=== PATIENT | female | born 1975 | race Caucasian/White ===

== ENCOUNTER → 2021-05-16 11:32 | Outpatient (CLI) | payer OTHER, MEDICAID, SELFPAY ==
--- NOTE | 2021-05-16 11:33 | DI.RAD.S_ITS ---
PROCEDURE: XR ANKLE LT MIN 3V INDICATIONS: Lt lateral malleolus pain, +injury, lateral LE pain TECHNIQUE: 3 views of the ankle were acquired. COMPARISON: None. FINDINGS: Bones: On the lateral view, there is a small possible avulsion fracture from the inferior cortex of the cuboid. Lateral malleolus is intact. Normal bone mineralization. Soft tissues: No tibiotalar joint effusion. Achilles tendon appears normal. IMPRESSION: Probable small avulsion fracture arising from the lateral inferior aspect of the cuboid tarsal bone. Differential would be small accessory ossicle. Approved by: Clement Aggarwal M.D. on 05/16/2021 at 11:36
== END ==
PROVIDERS: Family Provider Family Medicine; PCP Family Medicine; Referring Provider Nurse Practitioner Critical Care Medicine; Visit Provider Nurse Practitioner Critical Care Medicine
DX: S99.912A Unspecified injury of left ankle, initial encounter (principal); M25.572 Pain in left ankle and joints of left foot; X58.XXXA Exposure to other specified factors, initial encounter
CPT/HCPCS: 73610

== ENCOUNTER → 2021-06-18 16:04 | Outpatient (CLI) | payer OTHER, MEDICAID, SELFPAY | PROVIDERS: Family Provider Family Medicine; Referring Provider Physician Assistant; Visit Provider Physician Assistant | DX: S92.215A Nondisplaced fracture of cuboid bone of left foot, initial encounter for closed fracture (principal) ==

== ENCOUNTER → 2021-06-30 10:49 | Outpatient (CLI) | payer OTHER, MEDICAID, SELFPAY ==
--- NOTE | 2021-06-30 | DI.US.S_ITS ---
PROCEDURE: US PERIPH VENOUS LOW EXTREM LT INDICATIONS: Ankle fracture, left calf pain, clinical concern for DVT LEFT CALF TECHNIQUE: Real-time imaging, as well as color and pulse Doppler interrogation, were performed of the lower extremity deep veins from the inguinal ligament to the popliteal fossa. COMPARISON: None. FINDINGS: The common femoral, femoral and popliteal veins are normally compressible, and free of intraluminal thrombus. Color and pulse Doppler demonstrate normal phasic intraluminal flow. There is normal augmentation response to distal compression maneuver. IMPRESSION: Negative for deep venous thrombosis. Dictated by: Earle Camacho M.D. on 06/30/2021 at 10:55 Approved by: Earle Camacho M.D. on 06/30/2021 at 10:56
== END ==
PROVIDERS: Family Provider Family Medicine; Referring Provider Physician Assistant; Visit Provider Physician Assistant
DX: S92.215A Nondisplaced fracture of cuboid bone of left foot, initial encounter for closed fracture (principal); M79.662 Pain in left lower leg
CPT/HCPCS: 93971

== ENCOUNTER → 2021-07-14 17:31 | Outpatient (CLI) | payer OTHER, MEDICAID, SELFPAY ==
--- NOTE | 2021-07-14 | DI.MRI.S_ITS ---
PROCEDURE: MR ANKLE LT WO CON INDICATIONS: Nondisplaced fracture of the cuboid bone of left foot TECHNIQUE: Noncontrast sagittal T1 spin echo and T2 fast spin echo with fat saturation, axial proton density fast spin echo and T2 fast spin echo with fat saturation, coronal T1 spin echo and T2 fast spin echo with fat saturation through the ankle/hindfoot. COMPARISON: [facility], CR, XR ANKLE LT MIN 3V, 05/16/2021, 12:44. [facility], CR, XR ANKLE 3+ VIEWS LEFT, 05/24/2021, 15:48. [facility], CR, XR ANKLE 3+ VIEWS LEFT, 06/18/2021, 11:20. FINDINGS: Image quality: Excellent. Bones and joints: There is no marrow edema. No acute fracture or dislocation. Small calcifications adjacent to plantar and lateral aspect of proximal cuboid is seen and is within the distal peroneus longus tendon suggestive of calcific tendinitis. No hindfoot coalitions. No osteochondral injuries of the talar dome. No pathologic joint effusions. Medial structures: The posterior tibialis, flexor digitorum longus, and flexor hallucis longus tendons are intact. The posterior tibial neurovascular bundle appears normal within the tarsal tunnel, without extrinsic mass effect. The deep layer (anterior and posterior tibiotalar ligaments) and superficial layer (tibionavicular, tibiospring, and tibiocalcaneal ligaments) of the deltoid ligament appear normal. The spring ligament components (superomedial calcaneonavicular, medioplantar oblique calcaneonavicular, and inferoplantar longitudinal ligaments) are intact. Lateral structures: The anterior talofibular, calcaneofibular, and posterior talofibular ligaments appear thickened suggestive of low-grade ligament sprain. No full-thickness ligament rupture.. More superiorly, the anterior and posterior tibiofibular ligaments appear intact, as is the intermalleolar ligament. The tibiofibular syndesmosis is normal in width at 2 mm or less. The peroneus brevis tendon is normal in size and morphology. Mildly thickened peroneus longus tendon at the level of calcaneocuboid joint/proximal cuboid is seen. Adjacent bony peroneal tubercle and retrotrochlear prominence are normal in size. The sinus tarsi demonstrates normal fatty signal, without edema, fibrosis, or cyst formation. Visualized sinus tarsi components (cervical ligament, interosseous talocalcaneal ligament, roots of the inferior extensor retinaculum) appear normal. The calcaneonavicular and calcaneocuboid components of the bifurcate ligament appear intact. The dorsal calcaneocuboid ligament appears intact. Anterior structures: The tibialis anterior, extensor hallucis longus, and extensor digitorum longus tendons appear intact. The dorsal talonavicular ligament appears intact. Posterior and plantar structures: Achilles tendon is intact. Medial and lateral bands of the plantar fascia are of normal thickness. No abductor digiti quinti muscle atrophy to suggest Duran neuropathy. IMPRESSION: 1. No acute fracture or dislocation is seen. No marrow edema. 2. Previously radiograph findings of small calcifications adjacent to plantar and lateral aspect of proximal cuboid are again seen and appears to be within thickened peroneus longus tendon at this level suggestive of calcific tendinitis. 3. Low-grade sprain involving anterior and posterior talofibular ligaments and calcaneofibular ligament. Medial ankle ligaments are intact. 4. Rest of the ankle tendons are intact. Plantar fascia is intact. Dictated by: Yoel Marsh M.D. on 07/15/2021 at 10:18 Approved by: Yoel Marsh M.D. on 07/15/2021 at 10:44
== END ==
PROVIDERS: Family Provider Family Medicine; Referring Provider Physician Assistant; Visit Provider Physician Assistant
DX: S92.215A Nondisplaced fracture of cuboid bone of left foot, initial encounter for closed fracture (principal); S93.412A Sprain of calcaneofibular ligament of left ankle, initial encounter; S93.492A Sprain of other ligament of left ankle, initial encounter
CPT/HCPCS: 73721

== ENCOUNTER → 2022-01-07 16:03 | Outpatient (CLI) | payer OTHER, MEDICAID, SELFPAY | PROVIDERS: Family Provider Family Medicine; Visit Provider Nurse Practitioner Family | DX: R39.89 Other symptoms and signs involving the genitourinary system (principal); R10.2 Pelvic and perineal pain | CPT/HCPCS: 87086; 87210 ==

== ENCOUNTER → 2022-01-07 17:06 | Outpatient (CLI) | payer OTHER, MEDICAID, SELFPAY ==
[2022-01-08 00:33] LABS: Hepatitis B Surface Antigen NEGATIVE s/c (NEGATIVE)
[2022-01-08 00:50] LABS: HIV 1 & 2 Ab/Ag 4th Gen Combo NEGATIVE (NEGATIVE); Hep C Virus Ab w/Reflex Quant NEGATIVE s/c (NEGATIVE)
[2022-01-08 07:26] LABS: RPR Screen Non Reactive (Non Reactive)
[2022-01-10 11:36] LABS: HSV 2 IGG AB 1.13 index (0.00-0.90)
[2022-01-11 17:45] LABS: HSV I/II IgM <0.91 Ratio (0.00-0.90)
== END ==
PROVIDERS: Family Provider Family Medicine; Referring Provider Nurse Practitioner Family; Visit Provider Nurse Practitioner Family
DX: N89.8 Other specified noninflammatory disorders of vagina (principal); R39.89 Other symptoms and signs involving the genitourinary system; R10.2 Pelvic and perineal pain
CPT/HCPCS: 36415; 81002; 86592; 86694; 86695; 86696; 86803; 87086; 87210; 87340; 87389

== ENCOUNTER → 2022-05-13 17:03 | Outpatient (CLI) | payer OTHER, MEDICAID, SELFPAY ==
--- NOTE | 2022-05-13 17:04 | DI.RAD.S_ITS ---
PROCEDURE: XR CERVICAL SPINE 2V OR 3V INDICATIONS: radiculopathy, previous injury TECHNIQUE: 3 view(s) of the cervical spine were acquired. COMPARISON: [facility], MR, C-SPINE WITHOUT CONTRAST, 08/01/2008, 11:00. [facility], CR, XR SHOULDER LT MIN 2V, 05/13/2022, 17:10. FINDINGS: Bones: No fractures or dislocations to the T1 level. The lateral masses of C1 appear intact on the odontoid view. No suspicious bony lesions. There is moderate disc space narrowing seen at C4-C5, with moderate to severe disc space narrowing at C5-C6. Moderate disc space narrowing is seen at C6-C7. Endplate irregularity and sclerosis are seen, which are worst at C5-C6. There is overall straightening of the normal cervical lordosis, which is commonly observed in patients with muscular spasm. Soft tissues: No prevertebral soft tissue swelling. The visualized lung apices are unremarkable. IMPRESSION: Cervical spine degenerative changes are seen, which are worst at the C5-C6 level. If it would be helpful for clinical management decision making, please consider a dedicated cervical spine MRI for further evaluation (assuming that there is no contraindication). Dictated by: Earle Camacho M.D. on 05/13/2022 at 16:56 Approved by: Earle Camacho M.D. on 05/13/2022 at 16:57
--- NOTE | 2022-05-13 17:04 | DI.RAD.S_ITS ---
PROCEDURE: XR SHOULDER LT MIN 2V INDICATIONS: radiculopathy, previous injury TECHNIQUE: 3 views of the shoulder were acquired. COMPARISON: None. FINDINGS: Bones: No fractures or dislocations. No suspicious bony lesions. Visualized ribs appear intact. Mild degenerative changes are seen, with mild subacromial spurring. Soft tissues: No suspicious soft tissue calcifications. The visualized lung demonstrates an unremarkable appearance. IMPRESSION: Mild degenerative changes are seen by plain film. If it would be helpful for clinical management decision making, please consider a dedicated, scheduled shoulder MRI for further evaluation (assuming that there is no contraindication). Dictated by: Earle Camacho M.D. on 05/13/2022 at 16:55 Approved by: Earle Camacho M.D. on 05/13/2022 at 16:55
== END ==
PROVIDERS: Family Provider Family Medicine; Referring Provider Student in an Organized Health Care Education/Training Program; Visit Provider Student in an Organized Health Care Education/Training Program
DX: M47.22 Other spondylosis with radiculopathy, cervical region (principal); M25.512 Pain in left shoulder
CPT/HCPCS: 72040; 73030

== ENCOUNTER → 2022-05-21 18:03 | Outpatient (CLI) | payer OTHER, MEDICAID, SELFPAY | PROVIDERS: Family Provider Family Medicine; Visit Provider Nurse Practitioner Family | DX: N89.8 Other specified noninflammatory disorders of vagina (principal) | CPT/HCPCS: 87070; 87075; 87077; 87147; 87205; 87210; 87252 ==

== ENCOUNTER → 2022-05-31 09:43 | Outpatient (CLI) | payer OTHER, MEDICAID, SELFPAY ==
--- NOTE | 2022-05-31 09:45 | DI.RAD.S_ITS ---
PROCEDURE: XR LUMBAR SPINE 2-3V INDICATIONS: pain TECHNIQUE: 3 views of the lumbar spine were acquired. COMPARISON: None. FINDINGS: Bones: 5 [id number]-hys-ntuddml vertebrae are present. Qcfo-ln-jbrrvgmo scoliosis. Small vertebral body osteophytes. No vertebral body compression fractures. No suspicious bony lesions. Soft tissues: Prominent stool in the colon. No suspicious soft tissue calcifications. IMPRESSION: Cwxt-ob-sxcwmlmk scoliosis. Dictated by: Sancho Hancock M.D. on 05/31/2022 at 15:50 Approved by: Sancho Hancock M.D. on 05/31/2022 at 15:51
--- NOTE | 2022-05-31 09:45 | DI.RAD.S_ITS ---
PROCEDURE: XR KNEE RT 3V INDICATIONS: pain, effusion TECHNIQUE: 3 views of the knee were acquired. COMPARISON: None. FINDINGS: Bones: No fractures or dislocations. Joint space narrowing at the medial compartment. Small osteophytes. No suspicious bony lesions. Soft tissues: Small joint effusion. No suspicious soft tissue calcifications. IMPRESSION: Small joint effusion. Mild DJD at the medial compartment. Dictated by: Sancho Hancock M.D. on 05/31/2022 at 15:53 Approved by: Sancho Hancock M.D. on 05/31/2022 at 15:54
--- NOTE | 2022-05-31 09:45 | DI.RAD.S_ITS ---
PROCEDURE: XR HIP W PEL IF DONE LT 2V INDICATIONS: pain, n/t in leg, foot TECHNIQUE: AP pelvis with lateral view(s) of the left hip(s). COMPARISON: [facility], , XR LUMBAR SPINE 2-3V, 05/31/2022, 9:42. FINDINGS: Bones: No fractures or dislocations. Pelvic ring appears intact. Minimal hip DJD bilaterally. No suspicious bony lesions. Soft tissues: Prominent stool in the colon. No suspicious soft tissue calcifications. IMPRESSION: Minimal hip DJD. Prominent stool in the colon. Dictated by: Sancho Hancock M.D. on 05/31/2022 at 15:52 Approved by: Sancho Hancock M.D. on 05/31/2022 at 15:53
== END ==
PROVIDERS: Family Provider Family Medicine; PCP Family Medicine; Referring Provider Family Medicine; Visit Provider Family Medicine
DX: M25.552 Pain in left hip (principal); M25.561 Pain in right knee; G89.29 Other chronic pain; M54.50 Low back pain, unspecified; M41.9 Scoliosis, unspecified
CPT/HCPCS: 72100; 73502; 73562

== ENCOUNTER → 2022-06-08 17:16 | Outpatient (CLI) | payer OTHER, MEDICAID, SELFPAY ==
[2022-06-08 18:23] LABS: Alanine Aminotransferase 38 IU/L (<35); Albumin 4.1 g/dL (3.5-5.0); Albumin Globulin Ratio 1.3 (1.0-2.8); Alkaline Phosphatase 131 U/L (38-126); Aspartate Aminotransferase 34 IU/L (14-36); BUN Creatinine Ratio 23.1 (6-22); Bilirubin Total 0.3 mg/dL (0.2-1.3); Blood Urea Nitrogen 12 mg/dL (7-17); Calcium 8.8 mg/dL (8.4-10.2); Carbon Dioxide 31 mmol/L (22-32); Chloride 92 mmol/L (98-107); Cholesterol 157 mg/dL (140-199); Estimated Glomerular Filt Rate > 60 mL/min (>60); Globulin 3.2 g/dL (1.7-4.1); HDL Cholesterol 95 mg/dL (40-60); HEMOLYSIS < 15 (0-50); LDL Cholesterol Calculated 55 mg/dL (<100); Potassium 4.1 mmol/L (3.4-5.1); Sodium 132 mmol/L (137-145); Total Protein 7.3 g/dL (6.3-8.2); Triglycerides 37 mg/dL (35-150)
[2022-06-08 18:24] LABS: Hemoglobin A1C% w Est Avg Glu > 14.0 % (4.0-6.0)
[2022-06-08 18:37] LABS: Glucose 505 mg/dL (70-100)
== END ==
PROVIDERS: Family Provider Family Medicine; PCP Family Medicine; Referring Provider Family Medicine; Visit Provider Family Medicine
DX: I10 Essential (primary) hypertension (principal); Z13.1 Encounter for screening for diabetes mellitus; Z86.32 Personal history of gestational diabetes; F17.200 Nicotine dependence, unspecified, uncomplicated
CPT/HCPCS: 36415; 80053; 80061; 83036

== ENCOUNTER 2022-06-09 18:30 | Emergency (ER) | payer OTHER, MEDICAID, SELFPAY ==
[2022-06-09 18:48] VITALS: PULSE 107; RESP 20; TEMP 36.2; O2SAT 96; BMI 22.6
[2022-06-09] MEDS: SODIUM CHLORIDE 0.9% 1,000 ML 1000 ML IV (19:22)
[2022-06-09 19:26] LABS: Add Manual Diff / Slide Review NO; Basophils Absolute Auto 0 /uL (0-100); Basophils Percent Auto 0.8 % (0-2); Eosinophils Absolute Auto 300 /uL (0-450); Eosinophils Percent Auto 6.8 % (2-4); Hematocrit 41.4 % (36-46); Lymphocytes Absolute Auto 2300 /uL (1100-4500); Lymphocytes Percent Auto 45.5 % (25-40); Mean Corpuscular HGB Conc 33.9 % (30-36); Mean Corpuscular Hemoglobin 27.5 PG (26-34); Mean Corpuscular Volume 81.2 fL (80-100); Monocytes Absolute Auto 400 /uL (0-900); Monocytes Percent Auto 7.7 % (3-14); Neutrophils Absolute Auto 2000 /uL (1500-7000); Neutrophils Percent Auto 39.2 % (50-75); Platelet Count 367 X10^3/uL (150-400)
--- NOTE | 2022-06-09 19:41 | ED_ITS ---
HPI - General Adult General Chief complaint: Diabetic Problem Stated complaint: Blood sugar over 500 Time Seen by Provider: 06/09/22 19:11 Source: patient Mode of arrival: Ambulatory Limitations: no limitations History of Present Illness HPI narrative: Patient is a 47-year-old female who had a recent visit with a new primary doctor. She stated that during that visit she told her primary doctor that she was having similar symptoms to when she was diagnosed with gestational diabetes many years ago. She currently does not carry the diagnosis of diabetes. States she had blood drawn yesterday. She was contacted by the providers office to come to the emergency department because her blood sugar was elevated and there was concern for DKA. Her symptoms are muscle aches and increase in thirst. Related Data Previous Rx's Medication Instructions Recorded lidocaine 5 % topical ointment 1 applic topical DAILY PRN pain 05/13/22 #30 grams naproxen 500 mg tablet 500 mg PO BID PRN pain #60 tabs 05/31/22 metformin 500 mg tablet 500 mg PO DAILY #30 tabs 06/09/22 Allergies Allergy/AdvReac Type Severity Reaction Status Date / Time No Known Drug Allergies Allergy Verified 06/09/22 18:35 Review of Systems Review of Systems ROS Unobtainable: All systems reviewed & are unremarkable except as noted in HPI and below Patient History Medical History Benign essential HTN History of gestational diabetes Tobacco dependence Social History Smoking Status: Never smoker Smoking Status: Never smoker tobacco type: cigarettes Substance Use Type: heroin and methamphetamine Exam Initial Vital Signs Initial Vital Signs: Vital Signs Temperature 97.2 F L 06/09/22 18:48 Pulse Rate 107 H 06/09/22 18:48 Respiratory Rate 20 06/09/22 18:48 Pulse Oximetry 96 06/09/22 18:48 Oxygen Delivery Method 06/09/22 18:48 Const General: cooperative and comfortable HENMT Head: normal to inspection Resp Effort & Inspection: normal respiratory effort Cardio Rate: regular rate GI Inspection: normal to inspection Neuro General: patient alert, patient awake and moves all extremities Extrem General: normal to inspection Course Orders Ordered: ED Orders 06/09/22 19:15 Complete Blood Count AUTO DIFF Stat Comprehensive Metabolic Panel Stat Ketones (Beta-Hydroxybutyrate) Stat Lipase Stat Magnesium Stat Phosphorous Stat Discontinued Medications Sodium Chloride (Normal Saline 0.9%) 1,000 mls @ 1,000 mls/hr IV BOLUS ONE Stop: 06/09/22 20:11 Last Infusion: 06/09/22 20:34 Dose: 0 mls/hr Documented By: Admin: 06/09/22 19:22 Dose: 1,000 mls/hr Documented By: JON Metformin HCl (Metformin Hcl 500 Mg Tablet) 500 mg PO NOW ONE Stop: 06/09/22 21:06 Last Admin: 06/09/22 21:24 Dose: 500 mg Documented By: ALANIS Vital Signs Vital signs: Vital Signs - 8 hr 06/09/22 18:48 06/09/22 20:09 06/09/22 20:09 Temperature 97.2 F L Pulse Rate 107 H 89 Respiratory Rate 20 Blood Pressure 149/89 H Pulse Oximetry 96 95 Oxygen Delivery Method Room Air 06/09/22 20:30 06/09/22 20:30 06/09/22 21:00 Temperature Pulse Rate 82 96 H Respiratory Rate Blood Pressure 144/85 H Pulse Oximetry 99 100 Oxygen Delivery Method 06/09/22 21:00 Temperature Pulse Rate Respiratory Rate Blood Pressure 131/89 Pulse Oximetry Oxygen Delivery Method Medical Decision Making Medical Records Medical records reviewed: Yes I reviewed the patient's medical records. Lab Data Lab results reviewed: Yes I reviewed the patient's lab results. 06/09/22 19:15 06/09/22 19:15 Labs: Lab Results 06/09/22 06/09/22 Range/Units 19:15 19:15 WBC 5.0 (4.5-11.0) X10^3/uL RBC 5.10 (4.0-5.2) X10^6/uL Hgb 14.0 (12.0-16.0) g/dL Hct 41.4 (36-46) % MCV 81.2 (80-100) fL MCH 27.5 (26-34) PG MCHC 33.9 (30-36) % RDW 13.0 (11.6-14.8) % Plt Count 367 (150-400) X10^3/uL Neut % (Auto) 39.2 L (50-75) % Lymph % (Auto) 45.5 H (25-40) % [place] % (Auto) 7.7 (3-14) % Eos % (Auto) 6.8 H (2-4) % Baso % (Auto) 0.8 (0-2) % Neut # (Auto) 2000 (1610-0734) /uL Lymph # (Auto) 2300 (9722-2881) /uL [place] # (Auto) 400 (0-900) /uL Eos # (Auto) 300 (0-450) /uL Baso # (Auto) 0 (0-100) /uL Sodium 134 L (137-145) mmol/L Potassium 4.0 (3.4-5.1) mmol/L Chloride 94 L (98-107) mmol/L Carbon Dioxide 32 (22-32) mmol/L BUN 15 (7-17) mg/dL Creatinine 0.57 (0.52-1.04) mg/dL Estimated GFR > 60 (>60) mL/min BUN/Creatinine Ratio 26.3 H (6-22) Glucose 498 H* (70-100) mg/dL Calcium 9.2 (8.4-10.2) mg/dL Phosphorus 4.2 (2.5-4.5) mg/dL Magnesium 2.0 (1.6-2.3) mg/dL Total Bilirubin 0.6 (0.2-1.3) mg/dL AST 32 (14-36) IU/L ALT 38 H (<35) IU/L Alkaline Phosphatase 147 H (38-126) U/L Total Protein 7.9 (6.3-8.2) g/dL Albumin 4.4 (3.5-5.0) g/dL Globulin 3.5 (1.7-4.1) g/dL Albumin/Globulin Ratio 1.3 (1.0-2.8) Lipase 82 (23-300) U/L Ketones 0.06 (<0.27) mmol/L Point of Care Testing Glucose POC 365 Point of care testing: Point of Care Testing Glucose POC 365 [facility] Narrative Medical decision making narrative: Patient is hyperglycemic but not in DKA. Her blood sugar did improve with fluids. Patient is not currently on any diabetes medications. She stated that her primary doctor wanted to see her back in 1 month. Advised then given the findings of her blood sugar over the past couple days that she should probably be seen sooner than that and she needed to contact her primary doctor for this. Will start the patient on low-dose metformin. She will most likely need more metformin or even insulin however given this is such a new diagnosis and she will not have established follow-up with myself we will hold on starting her on any insulin. Will discharge patient home with instructions to follow with the primary doctor. She was given return precautions. She expressed understanding and agreement. Discharge Plan Departure Patient Disposition: Home Clinical Impression: Diabetes mellitus Instructions: DI for Diabetes Type 2 Activity Restrictions/Additional Instructions: I do recommend that you start taking the metformin as directed. Tomorrow contact your primary doctor for a follow-up. Return to the emergency department for any new or worsening symptoms. Prescriptions: New metformin 500 mg tablet 500 mg PO DAILY Qty: 30 0RF No Action lidocaine 5 % ointment 1 applic topical DAILY PRN (Reason: pain) Qty: 30 1RF naproxen 500 mg tablet 500 mg PO BID PRN (Reason: pain) Qty: 60 11RF Rx Instructions: with food Referrals: Abigail Lin DO [Primary Care Provider] - Stand Alone Forms: Patient Portal/API
[2022-06-09 20:09] VITALS: BP 149/89; PULSE 89; O2SAT 95
[2022-06-09 20:24] LABS: Alanine Aminotransferase 38 IU/L (<35); Albumin 4.4 g/dL (3.5-5.0); Albumin Globulin Ratio 1.3 (1.0-2.8); Alkaline Phosphatase 147 U/L (38-126); Aspartate Aminotransferase 32 IU/L (14-36); BUN Creatinine Ratio 26.3 (6-22); Bilirubin Total 0.6 mg/dL (0.2-1.3); Blood Urea Nitrogen 15 mg/dL (7-17); Calcium 9.2 mg/dL (8.4-10.2); Carbon Dioxide 32 mmol/L (22-32); Chloride 94 mmol/L (98-107); Estimated Glomerular Filt Rate > 60 mL/min (>60); Globulin 3.5 g/dL (1.7-4.1); HEMOLYSIS 24 (0-50); Lipase 82 U/L (23-300); Phosphorous 4.2 mg/dL (2.5-4.5); Sodium 134 mmol/L (137-145); Total Protein 7.9 g/dL (6.3-8.2)
[2022-06-09 20:27] LABS: Ketones (Beta-Hydroxybutyrate) 0.06 mmol/L (<0.27)
[2022-06-09 20:30] VITALS: BP 144/85; PULSE 82; O2SAT 99
[2022-06-09 20:31] LABS: Glucose 498 mg/dL (70-100)
[2022-06-09 21:00] VITALS: BP 131/89; PULSE 96; O2SAT 100
[2022-06-09] MEDS: METFORMIN HCL 500 MG TABLET PO (21:24)
== END 2022-06-09 21:05 | disposition home or self-care (01) ==
PROVIDERS: Emergency Provider Emergency Medicine; Family Provider Family Medicine; PCP Family Medicine
DX: E11.65 Type 2 diabetes mellitus with hyperglycemia (principal)
CPT/HCPCS: 36415; 80053; 82009; 82962; 83690; 83735; 84100; 85025; 96360; 99284

== ENCOUNTER → 2022-09-02 12:00 | Outpatient (CLI) | payer OTHER, MEDICAID, SELFPAY ==
[2022-09-02 14:04] LABS: Creatinine Urine Random 108.4 mg/dL
[2022-09-02 14:08] LABS: Microalbumi Creatinin Ratio Ur 7.3 ug/mg CR (<30); Microalbumin Urine Random 0.8 mg/dL (0-1.6)
[2022-09-03 02:32] LABS: Labcorp Hemoglobin (Hb) A1c 7.1 % (4.8-5.6)
== END ==
PROVIDERS: Family Provider Family Medicine; PCP Family Medicine; Referring Provider Family Medicine; Visit Provider Family Medicine
DX: E11.65 Type 2 diabetes mellitus with hyperglycemia (principal); Z79.4 Long term (current) use of insulin
CPT/HCPCS: 36415; 82043; 82570; 83036

== ENCOUNTER → 2023-02-03 11:34 | Outpatient (CLI) | payer OTHER, MEDICAID, SELFPAY | PROVIDERS: Family Provider Family Medicine; PCP Family Medicine; Referring Provider Family Medicine; Visit Provider Family Medicine | DX: R07.89 Other chest pain (principal) | CPT/HCPCS: 93005; 93010 ==

== ENCOUNTER → 2023-02-07 16:20 | Outpatient (CLI) | payer OTHER, MEDICAID, SELFPAY ==
[2023-02-08 17:28] LABS: Fecal Immunochemical Test Positive (Negative)
== END ==
PROVIDERS: Family Provider Family Medicine; PCP Family Medicine; Referring Provider Family Medicine; Visit Provider Family Medicine
DX: Z12.11 Encounter for screening for malignant neoplasm of colon (principal)
CPT/HCPCS: 82274

== ENCOUNTER → 2023-02-19 16:39 | Outpatient (CLI) | payer OTHER, MEDICAID, SELFPAY | PROVIDERS: Family Provider Family Medicine; PCP Family Medicine; Visit Provider Physician Assistant | DX: R30.0 Dysuria (principal) | CPT/HCPCS: 81002; 87077; 87086 ==

== ENCOUNTER 2023-04-20 07:18 | Day surgery (SDC) | payer OTHER, MEDICAID, SELFPAY ==
[2023-04-20 07:26] VITALS: BP 110/70; PULSE 117; RESP 16; TEMP 36.1; O2SAT 98; BMI 23.1
--- NOTE | 2023-04-20 07:48 | PM.HP.1 ---
History of Present Illness History of Present Illness Date Patient Seen: 04/20/23 Time Patient Seen: 07:48 Chief complaint: Screening Colonsocopy Narrative: Renetta a 48-year-old woman who is here for her first screening colonoscopy. No known family history of colon cancer. She tends to be constipated and sometimes sees some blood after a hard stool. FORMERLY [facility], 1928–1983 Medical History Insomnia PTSD (post-traumatic stress disorder) Major depression, single episode 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, with long-term current use of insulin Migraine headache Benign essential HTN Tobacco dependence Social History Smoking Status: Never smoker Meds Home Medications and Allergies Home Medications Medication Instructions Recorded Confirmed Type lidocaine 5 % topical ointment 1 applic topical DAILY PRN pain 05/13/22 02/19/23 Rx #30 grams naproxen 500 mg tablet 500 mg PO BID PRN pain #60 tabs 05/31/22 02/19/23 Rx blood sugar diagnostic (Advocate #100 ea 06/13/22 02/19/23 Rx Test Strips) blood-glucose meter (Advocate #1 ea 06/13/22 02/19/23 Rx Blood Glucose Monitor) metformin 500 mg tablet,extended 1,000 mg (2 x 500 mg) PO BID blood 06/13/22 02/19/23 Rx release 24hr sugars #360 tabs cyclobenzaprine 5 mg tablet 5 mg PO BEDTIME PRN muscle spasm 07/08/22 02/19/23 Rx #30 tabs insulin syr/ndl U100 half kirsten 0.3 #100 ea 12/01/22 02/19/23 Rx mL 29 gauge x 1/2 lidocaine HCl 4 % (40 mg/mL) 1 applic mucous membrane BID PRN 12/14/22 02/19/23 Rx mucosal solution pain #50 mL insulin glargine 100 unit/mL (3 20 unit (0.2 mL) SUBCUT QPM 01/16/23 02/19/23 Rx mL) subcutaneous pen (Lantus diabetes #15 mL Solostar U-100 Insulin) citalopram 20 mg tablet 20 mg PO DAILY 01/31/23 02/19/23 History prazosin 1 mg capsule 1 mg PO ONCE PM 01/31/23 02/19/23 History zolpidem 5 mg tablet 5 mg PO ONCE PM PRN 01/31/23 02/19/23 History peg 3350-sod sulf,vuhwp-xcc-fxo 1,000 ml PO DIRECTED #2,000 mL 02/15/23 02/19/23 Rx 178.7-7.3-0.5-1.12-0.9 gram oral soln (Suflave) phenazopyridine 200 mg tablet 200 mg PO TID PRN pain 6 doses #6 02/19/23 02/19/23 Rx (Pyridium) tabs pen needle, diabetic 31 gauge x #100 ea 03/14/23 Rx 1/4 (Comfort EZ Pen [place]) lancets 28 gauge #100 ea 04/11/23 Rx Allergies Allergy/AdvReac Type Severity Reaction Status Date / Time No Known Drug Allergies Allergy Verified 02/19/23 16:52 Exam Const General: No acute distress Resp Effort & Inspection: normal respiratory effort Assessment & Plan Assessment and plan (1) Colon cancer screening: Status: Acute Plan We reviewed the risks and benefits of colonoscopy for colon cancer screening and she would like to proceed.
[2023-04-20] MEDS: LACTATED RINGERS 1,000 ML 150 ML IV (07:50)
--- NOTE | 2023-04-20 08:07 | P.OP.COLON_ITS ---
Operative Date/Time/Diagnoses Date of procedure: 04/20/23 Time of procedure: 08:07 Pre-op diagnosis: Colon cancer screening Post-op diagnosis: same Procedure & Clinicians Study performed: Colonoscopy aborted due to poor prep Same procedure as scheduled: Yes Surgeon: Avery Lozano Procedure Notes Procedure in detail: Surgeon: Avery Lozano MD Anesthesia: Dara Posadas CRNA Procedure: The patient was brought to the endoscopy suite, placed in left lateral decubitus position. The patient was connected to monitoring devices. A time-out was performed. Sedation was administered. Once the patient was adequately sedated, a digital rectal exam was performed and was normal. The sco pe was then inserted into the rectum. There significant large, solid stools in the rectal vault. The procedure was aborted. The patient was awakened and brought to recovery. Scope withdrawal time: Not applicable Sedation time: 3 minutes EBL: 0 Findings: Inadequate prep Post-procedure Plan for aftercare: Reschedule colonoscopy Disposition: PACU
[2023-04-20 08:10] VITALS: BP 109/70; PULSE 106; RESP 16; TEMP 36.3; O2SAT 98
[2023-04-20 08:16] VITALS: BP 109/70; PULSE 99; RESP 16; TEMP 36.8; O2SAT 98
[2023-04-20 08:28] VITALS: BP 120/70; PULSE 77; RESP 16; TEMP 36.8; O2SAT 98
== END 2023-04-20 08:32 | disposition home or self-care (01) ==
PROVIDERS: Family Provider Family Medicine; PCP Family Medicine; Referring Provider Surgery; Visit Provider Surgery
PROC: 0DJD8ZZ Inspection of Lower Intestinal Tract, Via Natural or Artificial Opening Endoscopic (ICD-10-PCS; CPT 45378; principal; 2023-04-20 08:15)
DX: Z12.11 Encounter for screening for malignant neoplasm of colon (principal); Z53.8 Procedure and treatment not carried out for other reasons
CPT/HCPCS: 45378; J2704

== ENCOUNTER → 2023-05-12 16:58 | Outpatient (CLI) | payer OTHER, MEDICAID, SELFPAY ==
--- NOTE | 2023-05-12 16:58 | DI.MG.S_ITS ---
BILATERAL DIGITAL SCREENING MAMMOGRAM 3D/2D WITH CAD: 05/12/2023 CLINICAL: Routine screening. Baseline exam. No prior exams were available for comparison. There are scattered areas of fibroglandular density in both breasts (category b / 25%-50% glandular tissue). Current study was also evaluated with a Computer Aided Detection (CAD) system. There is an asymmetry in the left breast posterior depth lateral region seen on the craniocaudal view only. No other significant masses, calcifications, or other findings are seen in either breast. IMPRESSION: INCOMPLETE: NEEDS ADDITIONAL IMAGING EVALUATION The asymmetry in the left breast is indeterminate. Additional views with possible ultrasound are recommended. Based on the Tyrer Cuzick model (a risk assessment model) the patient's lifetime risk is 5.6% and her 10 year risk is 1.3%. According to the ACR, ACS, and NCCN guidelines, an annual breast MRI exam along with mammogram is recommended if the patient's lifetime risk is 20% or greater. This exam was interpreted at Station ID: [id number]. NOTE: For mammograms, a report in lay terms will be sent to the patient. Approximately 15% of breast malignancies will not be visualized mammographically. In the management of a palpable breast mass, a negative mammogram must not discourage biopsy of a clinically suspicious lesion. Electronically Signed By: Sunni [email or web address]:05/15/2023 12:38:29 letter sent: Additional Imaging Needed ACR BI-RADS Category 0: Incomplete 3340F
== END ==
PROVIDERS: Family Provider Family Medicine; Referring Provider Family Medicine; Visit Provider Family Medicine
DX: Z12.31 Encounter for screening mammogram for malignant neoplasm of breast (principal); R92.323 Mammographic fibroglandular density, bilateral breasts
CPT/HCPCS: 77063; 77067

== ENCOUNTER → 2023-06-04 13:29 | Outpatient (CLI) | payer OTHER, MEDICAID, SELFPAY ==
[2023-06-04 14:25] LABS: Influenza A - CEPHEID Flu A NEGATIVE (NEGATIVE); Influenza B - CEPHEID Flu B NEGATIVE (NEGATIVE); Respiratory Syncytial Virus Negative (Negative)
[2023-06-04 14:26] LABS: COVID-19 CEPHEID 4-PLEX PCR Negative (Negative)
== END ==
PROVIDERS: Family Provider Family Medicine; Visit Provider Physician Assistant Surgical
DX: R05.9 Cough, unspecified (principal)
CPT/HCPCS: 0241U

== ENCOUNTER → 2023-06-05 16:07 | Outpatient (CLI) | payer OTHER, MEDICAID, SELFPAY ==
--- NOTE | 2023-06-05 16:08 | DI.RAD.S_ITS ---
PROCEDURE: XR CHEST 2V INDICATIONS: chest congestion, rhonchi on exam TECHNIQUE: 2 views of the chest were acquired. COMPARISON: None. FINDINGS: Surgical changes and devices: None. Lungs and pleura: Lungs are clear. No pleural effusions or pneumothorax. Mediastinum: Mediastinal contours are normal. Heart size is normal. Bones and chest wall: No suspicious bony abnormalities. Soft tissues appear unremarkable. IMPRESSION: No acute cardiopulmonary abnormality is seen. Dictated by: Nova Nix M.D. on 06/05/2023 at 16:58 Approved by: Nova Nix M.D. on 06/05/2023 at 16:58
== END ==
PROVIDERS: Family Provider Family Medicine; Referring Provider Physician Assistant Surgical; Visit Provider Physician Assistant Surgical
DX: R09.89 Other specified symptoms and signs involving the circulatory and respiratory systems (principal)
CPT/HCPCS: 71046

== ENCOUNTER 2023-08-03 22:25 | Emergency (ER) | payer OTHER, MEDICAID, SELFPAY ==
[2023-08-03 22:31] VITALS: BP 176/100; PULSE 95; RESP 18; TEMP 36.9; O2SAT 98; BMI 24.0
== END 2023-08-04 02:00 | disposition left against medical advice (07) ==
PROVIDERS: Emergency Provider Emergency Medicine; Family Provider Family Medicine
DX: Z76.0 Encounter for issue of repeat prescription (principal)
CPT/HCPCS: 99281

== ENCOUNTER 2023-08-18 16:51 | Emergency (ER) | payer OTHER, MEDICAID, SELFPAY ==
--- NOTE | 2023-08-18 19:13 | PC.NURSE ---
Patient called for triage at 1715, no answer when name called in lobby. Patient called again for triage at 1725, no answer when name called. This RN went out to front ER entrance and down hallway towards cafeteria to try and find patient, but she was not found. Around 1750 patient's male computer support technician had used waiting room phone to call back to ER staff to say patient was here. This RN brought patient back to triage room to begin triage at 1757. Patient was ambulatory and answering questions appropriately. Patient explained she is here at ER today for a med refill, she was prescribed her insulin medication but has not been able to fill it because it has been out of stock. This RN reviewed med-rec to find medication name and noticed that the last filled date for this medication was 08/18/23. When this RN explained this to patient, she called pharmacy to confirm they had her medication ready for mushroom picker. [facility] pharmacy stated it is ready for mushroom picker. Patient states that she can leave now and go fill script immediately. Pt denied need for triage and left ER with male computer support technician at 1806. [facility]age.
== END 2023-08-18 18:06 | disposition left against medical advice (07) ==
PROVIDERS: Emergency Provider Emergency Medicine; Family Provider Family Medicine
DX: Z76.0 Encounter for issue of repeat prescription (principal)

== ENCOUNTER 2023-09-28 22:07 | Emergency (ER) | payer OTHER, MEDICAID, SELFPAY ==
[2023-09-28 22:11] VITALS: BP 147/82; PULSE 115; RESP 20; TEMP 36.6; O2SAT 96; BMI 24.9
--- NOTE | 2023-09-28 22:22 | DI.CT.S_ITS ---
PROCEDURE: CT ABDOMEN PELVIS W CON INDICATIONS: Left lower quadrant abdominal pain TECHNIQUE: After the administration of intravenous contrast, axial sections acquired from the lung bases to the pubic symphysis. Coronal and sagittal reformats were performed. For radiation dose reduction, the following was used: automated exposure control, adjustment of mA and/or kV according to patient size. COMPARISON: None. FINDINGS: Image quality: Diagnostic. Lower Chest: No significant findings. ABDOMEN: Liver: No solid mass. Gallbladder: No radiopaque gallstones or wall thickening. Biliary ducts: No biliary dilation. Pancreas: No ductal dilation. Spleen: Size is within normal limits. Adrenal Glands: No adrenal nodules. Kidneys and Ureters: No hydronephrosis. No solid mass. No complex renal cystic lesion which requires follow up. Stomach and Bowel: Normal colonic caliber, without significant wall thickening. Peritoneum: No abnormal intraperitoneal fluid. No free air. Ventral Wall: No significant ventral hernia. Abdominal Nodes: No retroperitoneal or mesenteric adenopathy by size criteria. Vessels: Aorta and inferior vena cava are normal in size. PELVIS: Pelvic Organs: Unremarkable. Bladder: No bladder wall thickening, accounting for underdistention. Pelvic Nodes: No enlarged lymph nodes. Miscellaneous: No inguinal hernias are seen. Bones: No aggressive osseous abnormality. IMPRESSION: No acute abdominopelvic process identified. Approved by: Anne Marie Isaacs M.D.,Ph.D. on 09/29/2023 at 0:43
[2023-09-28 22:34] VITALS: BP 143/80; PULSE 114; O2SAT 98
[2023-09-28 22:54] LABS: Add Manual Diff / Slide Review NO; Basophils Absolute Auto 0 /uL (0-100); Basophils Percent Auto 0.8 % (0-2); Eosinophils Absolute Auto 500 /uL (0-450); Eosinophils Percent Auto 8.1 % (2-4); Hematocrit 34.7 % (36-46); Hemoglobin 11.8 g/dL (12.0-16.0); Lymphocytes Absolute Auto 2300 /uL (1100-4500); Lymphocytes Percent Auto 39.8 % (25-40); Mean Corpuscular HGB Conc 33.9 % (30-36); Mean Corpuscular Hemoglobin 27.2 PG (26-34); Mean Corpuscular Volume 80.4 fL (80-100); Monocytes Absolute Auto 500 /uL (0-900); Monocytes Percent Auto 8.4 % (3-14); Neutrophils Absolute Auto 2500 /uL (1500-7000); Neutrophils Percent Auto 42.9 % (50-75); Platelet Count 311 X10^3/uL (150-400); Red Blood Cell Count 4.32 X10^6/uL (4.0-5.2); Red Cell Distribution Width 13.4 % (11.6-14.8); White Blood Cell Count 5.7 X10^3/uL (4.5-11.0)
[2023-09-28 23:00] VITALS: BP 137/76; PULSE 112; O2SAT 96
[2023-09-28 23:15] LABS: Alanine Aminotransferase 20 IU/L (<35); Albumin 4.1 g/dL (3.5-5.0); Albumin Globulin Ratio 1.3 (1.0-2.8); Alkaline Phosphatase 85 U/L (38-126); Aspartate Aminotransferase 31 IU/L (14-36); BUN Creatinine Ratio 26.2 (6-22); Bilirubin Total 0.3 mg/dL (0.2-1.3); Blood Urea Nitrogen 22 mg/dL (7-17); Carbon Dioxide 32 mmol/L (22-32); Chloride 104 mmol/L (98-107); Estimated Glomerular Filt Rate > 60 mL/min (>60); Globulin 3.1 g/dL (1.7-4.1); Glucose 236 mg/dL (70-100); HEMOLYSIS < 15 (0-50); Lipase 26 U/L (23-300); Potassium 4.2 mmol/L (3.4-5.1); Sodium 137 mmol/L (137-145); Total Protein 7.2 g/dL (6.3-8.2)
[2023-09-28 23:22] LABS: Pregnancy Test Serum,Qual Negative (Negative)
[2023-09-28 23:41] VITALS: PULSE 96; O2SAT 96
[2023-09-28 23:44] VITALS: BP 137/84; PULSE 94; O2SAT 99
--- NOTE | 2023-09-29 01:10 | ED.GENADULT ---
HPI - General Adult General Chief complaint: Abdominal Pain Stated complaint: Abd pain lt side Time Seen by Provider: 09/28/23 22:21 Source: patient Mode of arrival: Ambulatory History of Present Illness HPI narrative: Patient is a 48-year-old female who is an insulin-dependent diabetic also admits to using meth and heroin. Last use of these illicit drugs was at 1700 hours this afternoon who is here for evaluation of left lower quadrant abdominal pain that has been persistent for the past several months. It has become more intense over the past couple days. No urinary symptoms. Potentially issues with constipation. No vaginal bleeding. No urinary symptoms. Related Data Previous Rx's Medication Instructions Recorded blood sugar diagnostic (Advocate #100 ea 06/13/22 Test Strips) blood-glucose meter ([facility] #1 ea 06/13/22 Blood Glucose Monitor) insulin syr/ndl U100 half kirsten 0.3 #100 ea 12/01/22 mL 29 gauge x 1/2 insulin glargine 100 unit/mL (3 20 unit (0.2 mL) SUBCUT QPM 01/16/23 mL) subcutaneous pen (Lantus diabetes #15 mL Solostar U-100 Insulin) pen needle, diabetic 31 gauge x #100 ea 03/14/23/ (Comfort EZ Pen [place]) lancets 28 gauge #100 ea 04/11/23 benzonatate 200 mg capsule 200 mg PO BID PRN cough #20 caps 06/04/23 ipratropium bromide 21 mcg (0.03 2 spray intranasal BID #30 mL 06/04/23 %) nasal spray Allergies Allergy/AdvReac Type Severity Reaction Status Date / Time No Known Drug Allergies Allergy Verified 06/04/23 12:54 Review of Systems Constitutional Constitutional: Reports system reviewed and no additional complaints, except as documented Gastrointestinal Gastrointestinal: Reports system reviewed and no additional complaints, except as documented Genitourinary Genitourinary: Reports system reviewed and no additional complaints, except as documented Integumentary/Breasts Skin/Breast: Reports system reviewed and no additional complaints, except as documented Patient History Medical History Insomnia PTSD (post-traumatic stress disorder) Major depression, single episode 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, with long-term current use of insulin Migraine headache Benign essential HTN Tobacco dependence Social History household members: none Smoking Status: Current every day smoker alcohol intake: current Smoking Status: Current every day smoker tobacco type: cigarettes and vaping alcohol intake frequency: holidays/special occasions only Substance Use Type: marijuana, heroin and methamphetamine Exam Initial Vital Signs Initial Vital Signs: Vital Signs Temperature 97.8 F 09/28/23 22:11 Pulse Rate 115 H 09/28/23 22:11 Respiratory Rate 20 09/28/23 22:11 Blood Pressure 147/82 H 09/28/23 22:11 Pulse Oximetry 96 09/28/23 22:11 Oxygen Delivery Method Room Air 09/28/23 22:11 Const General: disheveled Resp Effort & Inspection: normal respiratory effort GI Inspection: normal to inspection and non-distended Palpation: soft, No firm, No guarding and tender Extrem General: normal to inspection Course Orders Ordered: ED Orders 09/28/23 22:22 CT abdomen pelvis w con Stat 09/28/23 22:47 Complete Blood Count AUTO DIFF Stat Comprehensive Metabolic Panel Stat Lipase Stat Test Serum,Qual Stat Discontinued Medications Naloxone HCl (Naloxone 4 Mg Nasal [place]) 4 mg MISC DIRECTED ONE Stop: 09/29/23 01:22 Vital Signs Vital signs: Vital Signs - 8 hr 09/28/23 22:11 09/28/23 22:34 09/28/23 22:34 Temperature 97.8 F Pulse Rate 115 H 114 H Respiratory Rate 20 Blood Pressure 147/82 H 143/80 H Pulse Oximetry 96 98 Oxygen Delivery Method Room Air 09/28/23 23:00 09/28/23 23:00 09/28/23 23:41 Temperature Pulse Rate 112 H 96 H Respiratory Rate Blood Pressure 137/76 Pulse Oximetry 96 96 Oxygen Delivery Method 09/28/23 23:44 09/28/23 23:44 09/29/23 01:20 Temperature Pulse Rate 94 H 103 H Respiratory Rate 15 Blood Pressure 137/84 132/79 Pulse Oximetry 99 98 Oxygen Delivery Method Room Air Medical Decision Making Lab Data Lab results reviewed: Yes I reviewed the patient's lab results. 09/28/23 22:47 09/28/23 22:47 Labs: Lab Results 09/28/23 Range/Units 22:47 WBC 5.7 (4.5-11.0) X10^3/uL RBC 4.32 (4.0-5.2) X10^6/uL Hgb 11.8 L (12.0-16.0) g/dL Hct 34.7 L (36-46) % MCV 80.4 (80-100) fL MCH 27.2 (26-34) PG MCHC 33.9 (30-36) % RDW 13.4 (11.6-14.8) % Plt Count 311 (150-400) X10^3/uL Neut % (Auto) 42.9 L (50-75) % Lymph % (Auto) 39.8 (25-40) % [place] % (Auto) 8.4 (3-14) % Eos % (Auto) 8.1 H (2-4) % Baso % (Auto) 0.8 (0-2) % Neut # (Auto) 2500 (3937-5204) /uL Lymph # (Auto) 2300 (3685-6394) /uL [place] # (Auto) 500 (0-900) /uL Eos # (Auto) 500 H (0-450) /uL Baso # (Auto) 0 (0-100) /uL Sodium 137 (137-145) mmol/L Potassium 4.2 (3.4-5.1) mmol/L Chloride 104 (98-107) mmol/L Carbon Dioxide 32 (22-32) mmol/L BUN 22 H (7-17) mg/dL Creatinine 0.84 (0.52-1.04) mg/dL Estimated GFR > 60 (>60) mL/min BUN/Creatinine Ratio 26.2 H (6-22) Glucose 236 H (70-100) mg/dL Calcium 9.0 (8.4-10.2) mg/dL Total Bilirubin 0.3 (0.2-1.3) mg/dL AST 31 (14-36) IU/L ALT 20 (<35) IU/L Alkaline Phosphatase 85 (38-126) U/L Total Protein 7.2 (6.3-8.2) g/dL Albumin 4.1 (3.5-5.0) g/dL Globulin 3.1 (1.7-4.1) g/dL Albumin/Globulin Ratio 1.3 (1.0-2.8) Lipase 26 (23-300) U/L Serum , Qual Negative (Negative) Point of Care Testing Test Results Negative Urine Dip Bedside Urine Glucose 250 mg/dl Bedside Urine Bilirubin - Negative Bedside Urine Ketone - Negative Urine Specific [place] 1.03 Bedside Urine Occult Blood - Negative Bedside Urine pH 5.5 Bedside Urine Protein - Negative Bedside Urine Urobilinogen - Negative Bedside Urine Nitrite - Negative Bedside Urine Leukocytes - Negative Esterase Point of care testing: Point of Care Testing Test Results Negative Urine Dip Bedside Urine Glucose 250 mg/dl Bedside Urine Bilirubin - Negative Bedside Urine Ketone - Negative Urine Specific [place] 1.03 Bedside Urine Occult Blood - Negative Bedside Urine pH 5.5 Bedside Urine Protein - Negative Bedside Urine Urobilinogen - Negative Bedside Urine Nitrite - Negative Bedside Urine Leukocytes - Negative Esterase Imaging Data CT scan - abdomen/pelvis: Radiologist's Impression: PROCEDURE: CT ABDOMEN PELVIS W CON INDICATIONS: Left lower quadrant abdominal pain TECHNIQUE: After the administration of intravenous contrast, axial sections acquired from the lung bases to the pubic symphysis. Coronal and sagittal reformats were performed. For radiation dose reduction, the following was used: automated exposure control, adjustment of mA and/or kV according to patient size. COMPARISON: None. FINDINGS: Image quality: Diagnostic. Lower Chest: No significant findings. ABDOMEN: Liver: No solid mass. Gallbladder: No radiopaque gallstones or wall thickening. Biliary ducts: No biliary dilation. Pancreas: No ductal dilation. Spleen: Size is within normal limits. Adrenal Glands: No adrenal nodules. Kidneys and Ureters: No hydronephrosis. No solid mass. No complex renal cystic lesion which requires follow up. Stomach and Bowel: Normal colonic caliber, without significant wall thickening. Peritoneum: No abnormal intraperitoneal fluid. No free air. Ventral Wall: No significant ventral hernia. Abdominal Nodes: No retroperitoneal or mesenteric adenopathy by size criteria. Vessels: Aorta and inferior vena cava are normal in size. PELVIS: Pelvic Organs: Unremarkable. Bladder: No bladder wall thickening, accounting for underdistention. Pelvic Nodes: No enlarged lymph nodes. Miscellaneous: No inguinal hernias are seen. Bones: No aggressive osseous abnormality. IMPRESSION: No acute abdominopelvic process identified. MDM Narrative Medical decision making narrative: Workup here in the emergency department is unremarkable. No emergent surgical process found. No infectious process found. Symptoms have been present for the past several months. She stated that approximately 6 months ago she was scheduled to have a routine colonoscopy but was unable to do so because the prep was not appropriate. I advised that she follow-up with general surgery to discuss having this procedure performed again. No indication for admission to the hospital or emergent surgical consultation. She was given return precautions. Patient was discharged home with a prepack of Narcan Discharge Plan Departure Patient Disposition: Home Clinical Impression: Abdominal pain Instructions: DI for Abdominal Pain-Adult Activity Restrictions/Additional Instructions: Your workup here in the emergency department today is very reassuring. I do recommend you contact the general surgery department with the number provided below for a follow-up to talk about the colonoscopy. Return to the emergency department for new symptoms Prescriptions: No Action benzonatate 200 mg capsule 200 mg PO BID PRN (Reason: cough) Qty: 20 0RF ipratropium bromide 21 mcg (0.03 %) spray,non-aerosol 2 spray intranasal BID Qty: 30 0RF Rx Instructions: administer into each nostril (DME) insulin syr/ndl U100 half kirsten 0.3 mL 29 gauge x 1/2 syringe See Rx Instructions .Route Qty: 100 3RF Rx Instructions: As directed insulin glargine [Lantus Solostar U-100 Insulin] 100 unit/mL (3 mL) insulin pen 20 unit SUBCUT QPM Qty: 15 11RF (DME) pen needle, diabetic [Comfort EZ Pen [place]] 31 gauge x 1/4 needle See Rx Instructions .Route Qty: 100 11RF Rx Instructions: TRUE PLUS PEN NEEDLES: Use with Basaglar insulin pens (DME) lancets 28 gauge misc See Rx Instructions .ROUTE .MEDSUPPLY Qty: 100 3RF Rx Instructions: As directed, once daily as neededd (DME) blood-glucose meter [[facility] Blood Glucose Monitor] Misc See Rx Instructions .ROUTE .MEDSUPPLY Qty: 1 0RF Rx Instructions: As directed, once daily as needed (DME) Advocate Test Strips Strip See Rx Instructions .ROUTE .MEDSUPPLY Qty: 100 3RF Rx Instructions: As directed, once daily as needed Referrals: Kirsten Lozano MD [Physician] - Miscellaneous,MD Rudolph [Primary Care Provider] - Stand Alone Forms: Patient Portal/API
[2023-09-29 01:20] VITALS: BP 132/79; PULSE 103; RESP 15; O2SAT 98
[2023-09-29] MEDS: NALOXONE 4 MG NASAL SPRAY MISC (01:24)
== END 2023-09-29 01:24 | disposition home or self-care (01) ==
PROVIDERS: Emergency Provider Emergency Medicine; Family Provider Family Medicine
DX: R10.32 Left lower quadrant pain (principal); Z79.899 Other long term (current) drug therapy
CPT/HCPCS: 74177; 80053; 81003; 81025; 83690; 84703; 85025; 99283; 99284; A9270; Q9967

== ENCOUNTER 2024-01-09 00:46 | Emergency (ER) | payer OTHER, MEDICAID, SELFPAY ==
[2024-01-09 01:03] VITALS: BP 144/86; PULSE 119; RESP 18; TEMP 36.6; O2SAT 98; BMI 26.0
--- NOTE | 2024-01-09 01:06 | ED_ITS ---
HPI - Recheck/Abnormal Lab/Rx General Chief Complaint: Recheck/Abnormal Lab/Rx Stated Complaint: wants to be tested for meningitis was exposed Time Seen by Provider: 01/09/24 00:58 Source: patient Mode of arrival: Ambulatory History of Present Illness HPI narrative: 48-year-old female states that she was exposed to her boyfriend 2 days ago who has been diagnosed with Neisseria meningitidis with bacteremia and joint infections and pneumonia, that patient apparently has not been diagnosed with meningitis but has disseminated Neisseria meningitidis. She was in contact with him recently, concerned about the exposure. Patient does not have any headache, photophobia, neck pain, chest pain, shortness of breath, abdominal pain, diarrhea, nausea, vomiting, weakness symptoms. Related Data Previous Rx's Medication Instructions Recorded blood-glucose meter ([facility] #1 ea 06/13/22 Blood Glucose Monitor) insulin syr/ndl U100 half kirsten 0.3 #100 ea 12/01/22 mL 29 gauge x 1/2 benzonatate 200 mg capsule 200 mg PO BID PRN cough #20 caps 06/04/23 ipratropium bromide 21 mcg (0.03 2 spray intranasal BID #30 mL 06/04/23 %) nasal spray insulin glargine 100 unit/mL (3 20 unit (0.2 mL) SUBCUT QPM 10/10/23 mL) subcutaneous pen (Lantus diabetes #15 mL Solostar U-100 Insulin) lancets 28 gauge #100 ea 10/10/23 blood sugar diagnostic (True #100 strips 10/20/23 Metrix Glucose Test Strip) pen needle, diabetic 31 gauge x #100 ea 12/11/23/ (Comfort EZ Pen [place]) Allergies Allergy/AdvReac Type Severity Reaction Status Date / Time No Known Drug Allergies Allergy Verified 06/04/23 12:54 Review of Systems Review of Systems Narrative: see HPI Patient History Medical History Insomnia PTSD (post-traumatic stress disorder) Major depression, single episode 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 HEAD: Atraumatic. Normocephalic. EYES: Pupils equal round and reactive. Extraocular motions intact. No scleral icterus. No injection or drainage. ENT: Nose without bleeding, purulent drainage. Throat without erythema, tonsillar hypertrophy or exudate. Airway patent. NECK: Trachea midline. Non tender CARDIOVASCULAR: Regular rate and rhythm without murmurs, gallops, or rubs. RESPIRATORY: Clear to auscultation. Breath sounds equal bilaterally. No wheezes, rales, or rhonchi. GASTROINTESTINAL: Abdomen soft, non-tender, nondistended. EXTREMITIES: No edema or joint tenderness. BACK: Nontender without deformity or crepitance. No flank tenderness. NEURO: AOx3. Motor functions grossly nonfocal SKIN: No rash or erythema of visible areas Initial Vital Signs Initial Vital Signs: Vital Signs Temperature 97.9 F 01/09/24 01:03 Pulse Rate 119 H 01/09/24 01:03 Respiratory Rate 18 01/09/24 01:03 Blood Pressure 144/86 H 01/09/24 01:03 Pulse Oximetry 98 01/09/24 01:03 Oxygen Delivery Method Room Air 01/09/24 01:03 Course Orders Ordered: Discontinued Medications Ciprofloxacin (Ciprofloxacin 250 Mg Tablet) 500 mg PO NOW ONE Stop: 01/09/24 01:14 Last Admin: 01/09/24 01:19 Dose: 500 mg Documented By: ABNER Vital Signs Vital signs: Vital Signs - 8 hr 01/09/24 01:03 01/09/24 01:21 Temperature 97.9 F 97.8 F Pulse Rate 119 H 104 H Respiratory Rate 18 17 Blood Pressure 144/86 H 144/85 H Pulse Oximetry 98 98 Oxygen Delivery Method Room Air Room Air MDM - Recheck/Abnormal Lab/Rx MDM Narrative Medical decision making narrative: 48-year-old female exposed to her boyfriend who has been diagnosed 2 days ago with Neisseria meningitidis bacteremia and pneumonia, has concerns about her recent exposure to him. She was close contact exposure to person with Neisseria meningitidis disseminated, she could have chemoprophylaxis with a dose of ciprofloxacin. She would like this dose. Ciprofloxacin 500 mg dose given. She was advised to consider recheck symptoms if she feels feverish or develops headache or symptoms of concern for infection Discharge Plan Departure Patient Disposition: Home Clinical Impression: Chemoprophylaxis Activity Restrictions/Additional Instructions: Exposure to boyfriend who was recently diagnosed with Neisseria meningitidis bacteremia and pneumonia, not aware that the patient has in fact developed meningitis but is disseminated infection. No fever at triage. Chemoprophylaxis discussed, usually this is oral dose of ciprofloxacin antibiotic. This was given. Recheck symptoms if you feel feverish or ill in the next day or 2. Return earlier to this/nearest emergency department for any change worsening symptoms or any concerns prior Prescriptions: No Action benzonatate 200 mg capsule 200 mg PO BID PRN (Reason: cough) Qty: 20 0RF ipratropium bromide 21 mcg (0.03 %) spray,non-aerosol 2 spray intranasal BID Qty: 30 0RF Rx Instructions: administer into each nostril (DME) insulin syr/ndl U100 half kirsten 0.3 mL 29 gauge x 1/2 syringe See Rx Instructions .Route Qty: 100 3RF Rx Instructions: As directed insulin glargine [Lantus Solostar U-100 Insulin] 100 unit/mL (3 mL) insulin pen 20 unit SUBCUT QPM Qty: 15 11RF (DME) lancets 28 gauge misc See Rx Instructions .ROUTE .MEDSUPPLY Qty: 100 3RF Rx Instructions: As directed, once daily as neededd (DME) True Metrix Glucose Test Strip Strip See Rx Instructions .ROUTE .COMPLEX Qty: 100 0RF Dose Instruction: TEST ONCE DAILY NEEDED Rx Instructions: TEST ONCE DAILY NEEDED (DME) pen needle, diabetic [Comfort EZ Pen [place]] 31 gauge x 1/4 needle See Rx Instructions .Route Qty: 100 11RF Rx Instructions: TRUE PLUS PEN NEEDLES: Use with Basaglar insulin pens (DME) blood-glucose meter [[facility] Blood Glucose Monitor] [facility] [place] See Rx Instructions .ROUTE .MEDSUPPLY Qty: 1 0RF Rx Instructions: As directed, once daily as needed Referrals: Miscellaneous,Doctor, MD [Primary Care Provider] - Stand Alone Forms: Patient Portal/API
[2024-01-09] MEDS: CIPROFLOXACIN 250 MG TABLET 500 MG PO (01:19)
[2024-01-09 01:21] VITALS: BP 144/85; PULSE 104; RESP 17; TEMP 36.6; O2SAT 98
== END 2024-01-09 01:21 | disposition home or self-care (01) ==
PROVIDERS: Emergency Provider Emergency Medicine; Family Provider Family Medicine
DX: Z20.811 Contact with and (suspected) exposure to meningococcus (principal); Z79.899 Other long term (current) drug therapy
CPT/HCPCS: 99283

== ENCOUNTER 2024-08-07 15:59 | Emergency (ER) | payer OTHER, SELFPAY ==
[2024-08-07 16:04] VITALS: BP 161/94; PULSE 105; RESP 20; TEMP 37; O2SAT 99; BMI 24.0
--- NOTE | 2024-08-07 16:30 | ED.DENTAL ---
HPI - Dental/Oral <Sanjana Sanders PA-C - Last Filed: 08/07/24 18:18> General Chief complaint: Dental/Oral Stated complaint: infected tooth Time Seen by Provider: 08/07/24 16:30 Source: patient Mode of arrival: Ambulatory History of Present Illness HPI Narrative: Ms. Delgado is a pleasant 49-year-old female with a past medical history of type 2 diabetes on insulin, hypertension, PTSD, MDD, polysubstance use who presents to the emergency department for left upper dental pain and concern for infection x4 days. Patient reports that she has numerous chronic dental caries and fractures, about 3 days ago she developed some pain of the left upper dental region with no known trauma. States that left upper gum and cheek area starting to feel swollen and she is concerned for infection. She took 800 mg ibuprofen yesterday without resolution of pain. She does admit to intermittently smoking heroin and meth, no injection drug use. No flu-like symptoms or fevers. Related Data Previous Rx's Medication Instructions Recorded blood-glucose meter (Advocate #1 ea 06/13/22 Blood Glucose Monitor) insulin syr/ndl U100 half kirsten 0.3 #100 ea 12/01/22 mL 29 gauge x 1/2 benzonatate 200 mg capsule 200 mg PO BID PRN cough #20 caps 06/04/23 ipratropium bromide 21 mcg (0.03 2 spray intranasal BID #30 mL 06/04/23 %) nasal spray insulin glargine 100 unit/mL (3 20 unit (0.2 mL) SUBCUT QPM 10/10/23 mL) subcutaneous pen (Lantus diabetes #15 mL Solostar U-100 Insulin) lancets 28 gauge #100 ea 10/10/23 blood sugar diagnostic (True #100 strips 10/20/23 Metrix Glucose Test Strip) pen needle, diabetic 31 gauge x #100 ea 12/11/23 1/ (Comfort EZ Pen Gays) chlorhexidine gluconate 0.12 % 15 ml buccal DAILY #120 mL 08/07/24 mouthwash (Peridex) lidocaine HCl 2 % mucosal solution 15 ml mucous membrane Q3H PRN pain 08/07/24 (Lidocaine Viscous) #100 mL Allergies Allergy/AdvReac Type Severity Reaction Status Date / Time No Known Drug Allergies Allergy Verified 06/04/23 12:54 Review of Systems <Sanjana Sanders PA-C - Last Filed: 08/07/24 18:18> Review of Systems ROS Unobtainable: All systems reviewed & are unremarkable except as noted in HPI and below Patient History <Sanjana Sanders PA-C - Last Filed: 08/07/24 18:18> Medical History Insomnia PTSD (post-traumatic stress disorder) Major depression, single episode 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, with long-term current use of insulin Migraine headache Benign essential HTN Tobacco dependence Social History household members: none Smoking Status: Current every day smoker alcohol intake: current Smoking Status: Current every day smoker tobacco type: cigarettes and vaping alcohol intake frequency: holidays/special occasions only Exam <Sanjana Sanders PA-C - Last Filed: 08/07/24 18:18> Narrative Exam Narrative: GENERAL: 49 year old patient appears stated age. Well-developed patient, in no acute distress. HEAD: Atraumatic. Normocephalic. EYES: Extraocular motions intact. No scleral icterus. No injection or drainage. ENT: Multiple chronic fractured teeth. TTP tooth #13 and surrounding gingiva. No palpable abscess or fluctuance. There is some tenderness to palpation of the left facial cheek overlying the upper maxilla. Posterior oropharynx is clear, floor of the mouth and submandibular region soft. NECK: Trachea midline. Cervical ROM intact. CARDIOVASCULAR: Regular rate RESPIRATORY: ?Nonlabored respirations. ?Speaking in clear, full sentences. NEURO: AOx3. ?Clear speech. ?Moves all 4 extremities appropriately. SKIN: No rash or erythema of visible areas Initial Vital Signs Initial Vital Signs: Vital Signs Temperature 98.6 F 08/07/24 16:04 Pulse Rate 105 H 08/07/24 16:04 Respiratory Rate 20 08/07/24 16:04 Blood Pressure 161/94 H 08/07/24 16:04 Pulse Oximetry 99 08/07/24 16:04 Oxygen Delivery Method Room Air 08/07/24 16:04 <Jas Leroy MD - Last Filed: 09/13/24 00:12> Initial Vital Signs Initial Vital Signs: Vital Signs Temperature 98.6 F 08/07/24 16:04 Pulse Rate 105 H 08/07/24 16:04 Respiratory Rate 20 08/07/24 16:04 Blood Pressure 161/94 H 08/07/24 16:04 Pulse Oximetry 99 08/07/24 16:04 Oxygen Delivery Method Room Air 08/07/24 16:04 Course <Sanjana Sandesr PA-C - Last Filed: 08/07/24 18:18> Orders Ordered: Discontinued Medications Acetaminophen (Acetaminophen 325 Mg Tablet) 975 mg PO NOW ONE Stop: 08/07/24 16:45 Last Admin: 08/07/24 16:54 Dose: 975 mg Documented By: SB Ibuprofen (Ibuprofen 600 Mg Tablet) 600 mg PO NOW ONE Stop: 08/07/24 17:01 Last Admin: 08/07/24 16:54 Dose: 600 mg Documented By: SB Lidocaine HCl (Lidocaine Viscous 2% 15 Ml Solution) 15 ml PO NOW ONE Stop: 08/07/24 16:45 Last Admin: 08/07/24 16:55 Dose: 15 ml Documented By: ERIN Naloxone HCl (Naloxone 4 Mg Nasal Friend) 4 mg MISC DIRECTED ONE Stop: 08/07/24 17:06 Last Admin: 08/07/24 17:23 Dose: 4 mg Documented By: NORBERTO Vital Signs Vital signs: Vital Signs - 8 hr 08/07/24 16:04 08/07/24 17:26 Temperature 98.6 F 98.6 F Pulse Rate 105 H 83 Respiratory Rate 20 16 Blood Pressure 161/94 H 163/94 H Pulse Oximetry 99 96 Oxygen Delivery Method Room Air Room Air <Jas Leroy MD - Last Filed: 09/13/24 00:12> Orders Ordered: Discontinued Medications Acetaminophen (Acetaminophen 325 Mg Tablet) 975 mg PO NOW ONE Stop: 08/07/24 16:45 Last Admin: 08/07/24 16:54 Dose: 975 mg Documented By: SB Ibuprofen (Ibuprofen 600 Mg Tablet) 600 mg PO NOW ONE Stop: 08/07/24 17:01 Last Admin: 08/07/24 16:54 Dose: 600 mg Documented By: SB Lidocaine HCl (Lidocaine Viscous 2% 15 Ml Solution) 15 ml PO NOW ONE Stop: 08/07/24 16:45 Last Admin: 08/07/24 16:55 Dose: 15 ml Documented By: SB Naloxone HCl (Naloxone 4 Mg Nasal Friend) 4 mg MISC DIRECTED ONE Stop: 08/07/24 17:06 Last Admin: 08/07/24 17:23 Dose: 4 mg Documented By: NORBERTO Vital Signs Vital signs: Vital Signs - 8 hr 08/07/24 16:04 08/07/24 17:26 Temperature 98.6 F 98.6 F Pulse Rate 105 H 83 Respiratory Rate 20 16 Blood Pressure 161/94 H 163/94 H Pulse Oximetry 99 96 Oxygen Delivery Method Room Air Room Air MDM - Dental/Oral <Sanjana Sanders PA-C - Last Filed: 08/07/24 18:18> Medical Records Attestation: I reviewed the patient's medical records. Medical records narrative: Prior ED visits reviewed from 01/09/2024, 09/29/2023, 06/09/22. [facility] Narrative Medical decision making narrative: 49-year-old female with a past medical history of type 2 diabetes on insulin, hypertension, PTSD, MDD, polysubstance use who presents to the emergency department for left upper dental pain and concern for infection x4 days. Differential diagnosis includes but is not limited to dental jesse, pulpitis, gingivitis, dental abscess, etc. On exam patient is in no acute distress, nontoxic appearing, afebrile. She has tenderness to palpation of tooth number 13 and the surrounding area with no visible drainable abscess at this time. Concern for dental infection, we will treat with Augmentin b.i.d. times 10 days. She was given viscous lidocaine ibuprofen and Tylenol in the ED for pain relief as requested. I prescribed her Peridex mouthwash in addition to viscous lidocaine. Discussed the importance of prompt follow up with a dentist for further management. Patient does have a history/admits to heroin and meth use, was provided with Narcan prepack. Patient verbalized understanding of all information, is agreeable to the plan, questions answered. She is stable for discharge home. <Jas Leroy MD - Last Filed: 09/13/24 00:12> [facility] Narrative Medical decision making narrative: 49-year-old female with a past medical history of type 2 diabetes on insulin, hypertension, PTSD, MDD, polysubstance use who presents to the emergency department for left upper dental pain and concern for infection x4 days. Differential diagnosis includes but is not limited to dental jesse, pulpitis, gingivitis, dental abscess, etc. On exam patient is in no acute distress, nontoxic appearing, afebrile. She has tenderness to palpation of tooth number 13 and the surrounding area with no visible drainable abscess at this time. Concern for dental infection, we will treat with Augmentin b.i.d. times 10 days. She was given viscous lidocaine ibuprofen and Tylenol in the ED for pain relief as requested. I prescribed her Peridex mouthwash in addition to viscous lidocaine. Discussed the importance of prompt follow up with a dentist for further management. Patient does have a history/admits to heroin and meth use, was provided with Narcan prepack. Patient verbalized understanding of all information, is agreeable to the plan, questions answered. She is stable for discharge home. I was available for consultation during this patient's emergency department stay but was not consulted, patient is seen primarily by BRENDA Villatoro Discharge Plan Departure Patient Disposition: Home Clinical Impression: Dental infection, Pain, dental Instructions: DI for Dental Pain Activity Restrictions/Additional Instructions: Dear Ms. Delgado, Thank you for coming to the emergency department. Today you were evaluated for left upper dental pain and I am concerned that you have a dental infection. You have been prescribed antibiotics to take twice a day for the next 10 days in addition to prescription mouthwash and also viscous lidocaine that you can use to help swish around her mouth to help with the patent. Please take Ibuprofen (Motrin/Advil) or Acetaminophen (Tylenol) for pain. These are available over the counter. You may take Ibuprofen 600 mg every 8 hours with food for pain. You may also take Acetaminophen 650 mg every 4-6 hours for pain. Do not exceed 3000 mg of Tylenol a day as this can cause liver damage. Do not drink alcohol with either of these medications. It is very important to follow up with a dentist for further management of your dental pain as you likely will need a root canal. Please return to the emergency department if you develop any new or worsening symptoms such as fevers, chills, flu-like symptoms, or swelling of the face. Please follow up with your primary care doctor within the next 2-3 days for ER follow-up. (If you do not have a PCP you can call [phone]. ?to schedule an appointment with an [facility] Primary Care Provider) IF YOU DEVELOP ANY NEW OR WORSENING SYMPTOMS, RETURN TO THE ER! Please read the attached instructions, they highlight more specific treatments and interventions for you at home. Thank you for letting me participate in your care, Sanjana Sanders PA-C Prescriptions: New lidocaine HCl [Lidocaine Viscous] 2 % solution 15 ml mucous membrane Q3H PRN (Reason: pain) Qty: 100 0RF Rx Instructions: swish and spit chlorhexidine gluconate [Peridex] 0.12 % mouthwash 15 ml buccal DAILY Qty: 120 0RF Rx Instructions: swish and spit No Action benzonatate 200 mg capsule 200 mg PO BID PRN (Reason: cough) Qty: 20 0RF ipratropium bromide 21 mcg (0.03 %) spray,non-aerosol 2 spray intranasal BID Qty: 30 0RF Rx Instructions: administer into each nostril (DME) insulin syr/ndl U100 half kirsten 0.3 mL 29 gauge x 1/2 syringe See Rx Instructions .Route Qty: 100 3RF Rx Instructions: As directed insulin glargine [Lantus Solostar U-100 Insulin] 100 unit/mL (3 mL) insulin pen 20 unit SUBCUT QPM Qty: 15 11RF (DME) lancets 28 gauge misc See Rx Instructions .ROUTE .MEDSUPPLY Qty: 100 3RF Rx Instructions: As directed, once daily as neededd (DME) True Metrix Glucose Test Strip Strip See Rx Instructions .ROUTE .COMPLEX Qty: 100 0RF Dose Instruction: TEST ONCE DAILY NEEDED Rx Instructions: TEST ONCE DAILY NEEDED (DME) pen needle, diabetic [Comfort EZ Pen Gays] 31 gauge x 1/4 needle See Rx Instructions .Route Qty: 100 11RF Rx Instructions: TRUE PLUS PEN NEEDLES: Use with Basaglar insulin pens (DME) blood-glucose meter [Advocate Blood Glucose Monitor] Misc See Rx Instructions .ROUTE .MEDSUPPLY Qty: 1 0RF Rx Instructions: As directed, once daily as needed Referrals: Ally Dubois ARNP [Primary Care Provider] - Stand Alone Forms: Patient Portal/API/Survey
[2024-08-07] MEDS: ACETAMINOPHEN 325 MG TABLET 975 MG PO (16:54)
[2024-08-07] MEDS: IBUPROFEN 600 MG TABLET PO (16:54)
[2024-08-07] MEDS: LIDOCAINE VISCOUS 2% 15 ML SOLUTION PO (16:55)
[2024-08-07] MEDS: NALOXONE 4 MG NASAL SPRAY MISC (17:23)
[2024-08-07 17:26] VITALS: BP 163/94; PULSE 83; RESP 16; TEMP 37; O2SAT 96
== END 2024-08-07 17:27 | disposition home or self-care (01) ==
PROVIDERS: Emergency Provider Physician Assistant; Family Provider Family Medicine; PCP Registered Nurse
DX: K04.7 Periapical abscess without sinus (principal); K08.89 Other specified disorders of teeth and supporting structures
CPT/HCPCS: 99283; A9270

== ENCOUNTER 2025-03-23 18:47 | Emergency (ER) | payer OTHER, SELFPAY ==
[2025-03-23 18:53] VITALS: BP 159/91; PULSE 104; RESP 18; TEMP 37; O2SAT 98; BMI 24.0
--- NOTE | 2025-03-23 19:10 | ED_ITS ---
HPI - Skin/Abscess/Foreign Bdy General Chief complaint: Skin/Abscess/Foreign Body Stated complaint: rash all over body Time Seen by Provider: 03/23/25 19:00 Source: patient Mode of arrival: Ambulatory Limitations: no limitations History of Present Illness HPI narrative: 50-year-old female with a history of meth abuse presents with some lesions over her dorsal side of her fingers with little bit of pus in them she claims as well as some increase in itchiness. No fever chills or other symptoms Related Data Previous Rx's ?Medication ?Instructions ?Recorded blood-glucose meter (Advocate #1 ea 06/13/22 Blood Glucose Monitor) insulin syr/ndl U100 half kirsten 0.3 #100 ea 12/01/22 mL 29 gauge x 1/2 benzonatate 200 mg capsule 200 mg PO BID PRN cough #20 caps 06/04/23 ipratropium bromide 21 mcg (0.03 2 spray intranasal BI D #30 mL 06/04/23 %) nasal spray insulin glargine 100 unit/mL (3 20 unit (0.2 mL) SUBCU T QPM 10/10/23 mL) subcutaneous pen (Lantus diabetes #15 mL Solostar U-100 Insulin) lancets 28 gauge #100 ea 10/10/23 blood sugar diagnostic (True #100 strips 10/20/23 Metrix Glucose Test Strip) pen needle, diabetic 31 gauge x #100 ea 12/11/23 1/ (Comfort EZ Pen Gering) chlorhexidine gluconate 0.12 % 15 ml buccal DAILY #120 mL 08/07/24 mouthwash (Peridex) lidocaine HCl 2 % mucosal solution 15 ml mucous membra ne Q3H PRN pain 08/07/24 (Lidocaine Viscous) #100 mL cephalexin 500 mg capsule 500 mg PO BID #14 caps 03/23 Allergies Allergy/AdvReac Type Severity Reaction Status Date / Time No Known Drug Allergies Allergy Verified 03/23/25 18:53 Review of Systems Review of Systems ROS Unobtainable: All systems reviewed & are unremarkable except as noted in HPI and below Patient History Medical History Insomnia PTSD (post-traumatic stress disorder) Major depression, single episode 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, with long-term current use of insulin Migraine headache Benign essential HTN Tobacco dependence Social History household members: none alcohol intake: current Smoking Status: Current every day smoker tobacco type: cigarettes and vaping alcohol intake frequency: holidays/special occasions only Exam Narrative Exam Narrative: General: Patient appears to be in no acute distress, acting appropriately Head: normocephalic, atraumatic, HEENT: Pupils equal round reactive, eyes tracking well, neck supple, no JVD Heart: regular rate and rhythm, no murmurs, rubs, or gallops heard Lungs: clear to auscultation, no adventitious sounds Abdomen: soft , nontender, nondistended, positive bowel sounds Neurological: no focal neurological signs, moving all extremities well, alert and oriented x3, Psych: good judgment ,good insight, mood is normal. skin: poor hygiene, has some papular lesions over fingers on dorsal side Initial Vital Signs Initial Vital Signs: Vital Signs Temperature 98.6 F 03/23/25 18:53 Pulse Rate 104 H 03/23/25 18:53 Respiratory Rate 18 03/23/25 18:53 Blood Pressure 159/91 H 03/23/25 18:53 Pulse Oximetry 98 03/23/25 18:53 Oxygen Delivery Method Room Air 03/23/25 18:53 Course Vital Signs Vital signs: Vital Signs - 8 hr 03/23/25 18:53 Temperature 98.6 F Pulse Rate 104 H Respiratory Rate 18 Blood Pressure 159/91 H Pulse Oximetry 98 Oxygen Delivery Method Room Air MDM - Skin/Abscess/Foreign Bdy MDM Narrative Medical decision making narrative: 50-year-old female with a history of IV meth use and abuse presents with potential skin infection of her extremities. We will cover for cellulitis and gave a prepack of Keflex to be completed over a week course. Advised to follow up sooner if symptoms worsen Discharge Plan Departure Patient Disposition: Home Clinical Impression: Cellulitis of dorsum of hand Instructions: DI for Cellulitis -- Adult Activity Restrictions/Additional Instructions: Take antibiotics as prescribed. If symptoms worsen come on back in the next 2 days. Prescriptions: New cephalexin 500 mg capsule 500 mg PO BID Qty: 14 0RF No Action benzonatate 200 mg capsule 200 mg PO BID PRN (Reason: cough) Qty: 20 0RF ipratropium bromide 21 mcg (0.03 %) spray,non-aerosol 2 spray intranasal BID Qty: 30 0RF Rx Instructions: administer into each nostril (DME) insulin syr/ndl U100 half kirsten 0.3 mL 29 gauge x 1/2 syringe See Rx Instructions .Route Qty: 100 3RF Rx Instructions: As directed insulin glargine [Lantus Solostar U-100 Insulin] 100 unit/mL (3 mL) insulin pen 20 unit SUBCUT QPM Qty: 15 11RF (DME) lancets 28 gauge [facility] [place] See Rx Instructions .ROUTE .MEDSUPPLY Qty: 100 3RF Rx Instructions: As directed, once daily as neededd (DME) True Metrix Glucose Test Strip Strip See Rx Instructions .ROUTE .COMPLEX Qty: 100 0RF Dose Instruction: TEST ONCE DAILY NEEDED Rx Instructions: TEST ONCE DAILY NEEDED (DME) pen needle, diabetic [Comfort EZ Pen Gering] 31 gauge x 1/4 needle See Rx Instructions .Route Qty: 100 11RF Rx Instructions: TRUE PLUS PEN NEEDLES: Use with Basaglar insulin pens (DME) blood-glucose meter [Advocate Blood Glucose Monitor] [facility] [place] See Rx Instructions .ROUTE .MEDSUPPLY Qty: 1 0RF Rx Instructions: As directed, once daily as needed lidocaine HCl [Lidocaine Viscous] 2 % solution 15 ml mucous membrane Q3H PRN (Reason: pain) Qty: 100 0RF Rx Instructions: swish and spit chlorhexidine gluconate [Peridex] 0.12 % mouthwash 15 ml buccal DAILY Qty: 120 0RF Rx Instructions: swish and spit Referrals: Ally Dubois ARNP [Primary Care Provider, Nursing] Stand Alone Forms: Patient Portal/API
== END 2025-03-23 19:34 | disposition home or self-care (01) ==
PROVIDERS: Emergency Provider Family Medicine; Family Provider Family Medicine; PCP Registered Nurse
DX: L03.119 Cellulitis of unspecified part of limb (principal)
CPT/HCPCS: 99281